=== PATIENT | female | born 1965 | race Caucasian/White ===

== ENCOUNTER 2023-05-07 14:20 | Outpatient (REF) | payer MEDICAID, SELFPAY ==
[2023-05-07 14:48] LABS: MANUAL DIFF FLAG NO
[2023-05-07 15:01] LABS: Basophils Percent Auto 0.4 % (0-2); Eosinophils Absolute Auto 0.1 X10*3/uL (0.0-0.4); Eosinophils Percent Auto 0.9 % (0-4); Hemoglobin 12.3 g/dl (12.0-16.0); Imm Gran Abs Auto 0.01 X10*3/uL (0.00-0.03); Imm Gran Pct Auto 0.1 % (0.0-0.4); Lymphocytes Absolute Auto 3.4 X10*3/uL (1.2-4.9); Lymphocytes Percent Auto 41.4 % (20-40); Mean Corpuscular HGB Conc 33.2 g/dl (31.0-35.0); Mean Corpuscular Hemoglobin 29.1 pg (27.0-33.0); Mean Corpuscular Volume 87.5 fL (80.0-98.0); Mean Platelet Volume 9.8 fL (9.4-12.3); Monocytes Absolute Auto 0.6 X10*3/uL (0.1-1.2); Monocytes Percent Auto 7.8 % (2-11); Neutrophils Percent Auto 49.4 % (45-73); Platelet Count 276 X10*3/uL (160-400); Red Blood Count 4.23 X10*6/uL (4.20-5.50); Red Cell Distribution Width 13.4 % (11.0-16.0); White Blood Count 8.1 X10*3/uL (4.8-10.8)
[2023-05-07 15:12] LABS: Estimated Average Glucose 103 mg/dL; Hemoglobin A1c % 5.2 % (<6.0)
[2023-05-07 15:35] LABS: Alanine Aminotransferase 56 U/L (0-31); Albumin Level 4.4 g/dL (3.5-5.0); Alkaline Phosphatase 159 U/L (39-117); Anion Gap 16 (12-20); Aspartate Amino Transferase 44 U/L (5-31); Bilirubin Total 0.2 mg/dL (0.0-1.0); Blood Urea Nitrogen 19 mg/dL (9-16); Calcium 10.2 mg/dL (8.4-10.2); Carbon Dioxide 26 mmol/L (22-29); Chloride 104 mmol/L (96-108); Estimated Glomerular Filt Rate 59; Glucose Random 95 mg/dL (60-115); Potassium 3.9 mmol/L (3.3-5.1); Sodium 142 mmol/L (135-145); Total Protein 7.3 g/dL (6.5-8.0)
[2023-05-07 15:51] LABS: Thyroid Stimulating Hormone 2.05 uIU/mL (0.32-4.0)
[2023-05-15 22:23] LABS: Islet Cell Antibody Screen NEGATIVE (NEGATIVE)
== END 2023-05-07 14:21 | disposition home or self-care (01) ==
LOC: HO.LAB 14:20
PROVIDERS: Visit Provider Registered Nurse
DX: G25.82 Stiff-man syndrome (principal)
CPT/HCPCS: 36415; 80053; 83036; 84443; 85025; 86341

== ENCOUNTER 2024-03-11 14:40 | Outpatient (REF) | payer MEDICAID, SELFPAY | END 2024-03-11 14:41 | disposition home or self-care (01) | LOC: HO.LAB 14:40 | PROVIDERS: PCP Nurse Practitioner; Visit Provider Registered Nurse | DX: G25.82 Stiff-man syndrome (principal) | CPT/HCPCS: 83520 ==

== ENCOUNTER 2024-09-16 11:13 | Emergency (ER) | payer MEDICAID, SELFPAY ==
[2024-09-16 11:23] VITALS: BP 117/78; PULSE 84; O2SAT 97
[2024-09-16 11:25] VITALS: BP 138/80; PULSE 86; RESP 17; TEMP 36.5; O2SAT 96; BMI 31.0
[2024-09-16 11:38] VITALS: BP 138/80; PULSE 86; RESP 17; TEMP 36.5; O2SAT 96
--- OUTSIDE RECORDS SUMMARY | 2024-09-16 12:51 | XMS_ITS | Clinical Summary ---
Author Organization [facility] Address [address] [place] [address] Care Team Providers Care Physician Underwriter Name Role Phone Unknown Primary Care Provider Allergies Active Allergy Reactions Criticality Noted Date Comments Penicillins Unknown/Patient and Family Unable to Define Medium 09/15/2024 Sulfa Antibiotics Unknown/Patient and Family Unable to Define Medium 09/15/2024 Medications clindamycin (CLEOCIN) 300 MG capsule Take 1 capsule (300 mg total) by mouth every 6 (six) hours. Take as directed or until you run out 40 capsule 09/15/2024 09/26/19 25 Active ibuprofen (MOTRIN) 600 MG tablet Take 1 tablet (600 mg total) by mouth 3 (three) times a day as needed for mild pain (pain). 30 tablet 09/15/2024 Active Encounters Date Type Department Care Team Description 09/15/2024 6:40 PM EDT - 09/15/2024 11:46 PM EDT Emergency [facility] Emergency Department [address] [place] [address] Surendra Colindres MD Dental abscess (Primary Dx) Discharge Disposition: Home or Self Care 09/15/2024 1:20 PM EDT Ancillary Procedure [facility] [address] [place] [address] Provider, File Room Arrived 09/15/2024 Documentation [facility] DENT[facility] [address] [place] [phone] Anni De La Torre DMD 09/15/2024 Travel 09/15/2024 Orders Only [facility] [address] [place] [address] Provider, File Room from Last 3 Months Social History Tobacco Use Types Packs/Day Years Used Date Smoking Tobacco: Never Assessed Comments Unknown Sex and Gender Information Value Date Recorded Sex Assigned at Female 09/15/2024 6:44 PM EDT Legal Sex Female 3:20 PM EDT Gender Identity Female 09/15/2024 6:44 PM EDT Sexual Orientation Heterosexual (straight) 09/15 6:46 PM EDT Last Filed Vital Signs Vital Sign Reading Time Taken Comments Blood Pressure 158/84 09/15/2024 6:32 PM EDT Pulse 94 09/15/2024 6:32 PM EDT Temperature 36.1 C (97 F) 09/15/2024 6:32 PM EDT Respiratory Rate 16 09/15/2024 6:32 PM EDT Oxygen Saturation 98% 09/15/2024 6:32 PM EDT Inhaled Oxygen Concentration - - Weight - - Height - - Body Mass Index - - Plan of Treatment Health Maintenance Due Date Last Done Comments Hepatitis C Virus Screening 1967 HIV Screening 1980 DTaP/Tdap/Td Vaccines (1 - Tdap) 1986 Hepatitis B Vaccines (1 of 3 - 19+ 3-dose series) 1986 Pap Smear (Ages 21-65) 1988 Mammogram 2007 Colonoscopy 2012 Pneumococcal Vaccines 50+ (1 of 1 - PCV) 2017 Zoster (Shingles) Vaccine (1 of 2) 2017 COVID-19 Vaccine ( - season) 2023 08/22/2021, 03/14/2021, 10/04/2020 Influenza Vaccine 09/17/2024 Procedures Procedure Name Priority Date/Time Associated Diagnosis Comments XR PANOREX STAT 09/15/2024 8:[address] HEAD ARCHIVE FOR REFERENCE ONLY Routine 09/15/2024 1:17 PM EDT from Last 3 Months Results * XR Panorex (09/15/2024 8:06 PM EDT) Anatomical Region Laterality Modality Face Computed Radiogr aphy 09/15/2024 7:30 PM EDT Impressions 09/15/2024 10:06 PM EDT No periapical lucency to suggest an odontogenic abscess. Interpreted by: Darlene Smith DO Corrections Sergeant I personally reviewed the images and the resident's preliminary report and AGREE with the report as it is now presented ([email or web address]). Narrative 09/15/2024 10:06 PM EDT EXAMINATION: Panorex radiograph of the maxillofacial bones. CLINICAL INFORMATION: Dental abscess to right incisor COMPARISON: None. TECHNIQUE: Panorex radiograph of the maxilla and mandible was obtained. FINDINGS: No evidence of mandibular or maxillary fracture. The mandibular condyles appear well-seated within their respective temporal articular grooves. Multiple missing teeth. No abnormal periapical lucencies to suggest odontogenic abscesses. No abnormal opacification of the visualized paranasal sinuses. Procedure Note Addy Montiel MD - 09/15/2024 EXAMINATION: Panorex radiograph of the maxillofacial bones. CLINICAL INFORMATION: Dental abscess to right incisor COMPARISON: None. TECHNIQUE: Panorex radiograph of the maxilla and mandible was obtained. FINDINGS: No evidence of mandibular or maxillary fracture. The mandibular condyles appear well-seated within their respective temporal articular grooves. Multiple missing teeth. No abnormal periapical lucencies to suggest odontogenic abscesses. No abnormal opacification of the visualized paranasal sinuses. IMPRESSION: No periapical lucency to suggest an odontogenic abscess. Interpreted by: Darlene Smith DO Corrections Sergeant I personally reviewed the images and the resident's preliminary report and AGREE with the report as it is now presented ([email or web address]). Brijesh Crawford PA-C [facility]NO[facility]AG[facility] ORDERABLES Final Result * CT Head Archive for Reference Only (09/15/2024 1:17 PM EDT) Narrative KARIME - 09/15/2024 1:17 PM EDT This study has been auto finalized and does not contain a result. us File Room Provider [facility]G DIGITIZE FILMS Final Resu lt KARIME [phone] from Last 3 Months Insurance [facility] Care Teams Physician Underwriter Relationship Specialty Start Date End Date Unknown Unknow Provider Address PCP - General 09/15/24
--- OUTSIDE RECORDS SUMMARY | 2024-09-16 12:51 | XMS_ITS | Clinical Summary ---
Author Organization [facility] Address [address] [place] [id number] Care Team Providers Care Supervisor Grinding Name Role Phone Unavailable Primary Care Provider Unavailabl e Social History Tobacco Use Types Packs/Day Years Used Date Smoking Tobacco: Never Assessed Comments Unknown Sex and Gender Information Value Date Recorded Sex Assigned at Not on file Legal Sex Female 9:42 AM EDT Gender Identity Not on file Sexual Orientation Not on file Plan of Treatment Health Maintenance Due Date Last Done Comments Breast Cancer Screening 1967 Hepatitis B Vaccine (1 of 3 - 19+ 3-dose series) 03/11 Colorectal Cancer Screening: Annual FOBT 2016 Colorectal Cancer Screening: Colonoscopy 2016 Colorectal Cancer Screening: Sigmoidoscopy 2016 Pneumococcal Vaccine: 50+ Years (1 of 1 - PCV) 018 Influenza Vaccine (#1) 2024 Insurance Medicaid [place]
--- OUTSIDE RECORDS SUMMARY | 2024-09-16 12:51 | XMS_ITS | Patient Health Record ---
Author Organization [facility] Address [address], [place] [id number] Care Team Providers Care Bone Char Operator Name Role Phone Guadalupe Danielle Primary Care Provider [phone] Sandeep Bhat Unavailable [phone] Nancy Greco Unavailable [phone] Allergies Allergen (clinical drug ingredient) Drug/Non Drug Allergy documented on EMR Reaction Allergy Type Onset Date Status Sulfa anaphylaxis Drug Allergy Activ e erythromycin Unknown Drug Allergy Acti ve Results Component Value Reference Range Notes MICROALBUMIN CREATININE URIN E RATIO Reviewed date:01/22/2024 03:59:28 PM Interpretation:Normal Performing Lab: Notes/Report: Creatinine, Urine 190.0 Microalb, Ur 8.6 0.0-29.0 mg/L Microalb/Creat Ratio 5 <30 mg/g creat COMPREHENSIVE METABOLIC PANE L Reviewed date:01/22/2024 03:59:10 PM Interpretation:Abnormal Performing Lab: Notes/Report: Sodium 144 133-145 mmol/L Potassium 3.8 3.5-5.5 mmol/L Chloride 108 96-110 mmol/L CO2 29 21-32 mmol/L Anion Gap 7 3-11 Glucose 128 70-100 mg/dL BUN 15 5-25 mg/dL Creatinine 1.11 0.50-1.10 mg/dL eGFR 58 >=60 mL/min/1.73m2 Calculati on based on the?Chronic Kidney Disease Epidemiology Collaboration (CKD-EPI) equation refit?without adjustment for race. BUN/Creatinine Ratio 13.5 Calcium 9.5 8.5-10.5 mg/dL AST (SGOT) 47 10-42 unit/L ALT (SGPT) 59 10-60 unit/L Alkaline Phosphatase 184 42-121 unit/L Total Protein 7.0 6.0-8.0 g/dL Albumin 4.0 3.2-5.0 g/dL Total Bilirubin 0.3 0.0-1.4 mg/dL COMPLETE BLOOD COUNT Reviewed date:01/22/2024 03:59:18 PM Interpretation:Normal Performing Lab: Notes/Report: WBC 6.5 4.8-10.8 K/mcL RBC 4.00 3.80-4.80 M/mcL Hemoglobin 11.9 11.5-16.0 g/dL Hematocrit 36.9 35.0-47.0 % MCV 92.5 79.0-98.0 FL MCH 29.8 27.0-32.0 pcg MCHC 32.2 32.0-37.0 g/dL RDW 13.8 11.0-15.0 % Platelets 243 130-400 K/mcL MPV 10.0 7.0-11.0 FL NRBC 0.0 <1.0 % NRBC Absolute 0.00 <0.10 K/mcL LIPID PANEL WITH REFLEX TO D IRECT LDL Reviewed date:01/23/2024 11:20:43 AM Interpretation:Abnormal Performing Lab: Notes/Report: Cholesterol 222 0-200 mg/dL Triglycerides 296 0-150 mg/dL HDL 54 >=40 mg/dL LDL Calculated 109 0-100 mg/dL VLDL Cholesterol Alexey 59.2 Non HDL Chol. (LDL+VLDL) 168 <145 mg/dL Chol/HDL Ratio 4.1 0.0-4.4 THYROID STIMULATING HORMONE WITH REFLEX TO FREE T4 AND FREE T3 Reviewed date:01/22/2024 03:58:43 PM Interpretation:Normal Performing Lab: Notes/Report: TSH 2.63 0.40-4.00 mcIU/mL HEMOGLOBIN A1C Reviewed date:01/22/2024 03:58:36 PM Interpretation:Normal Performing Lab: Notes/Report: Hemoglobin A1C 4.8 <6.5 % Mean Bld Glu Estim. 91 Reason For Referral Reason To [address] x12 months, x5 monthly Referral Organization [facility] Referring Provider First Name Guadalupe Referring Provider Last Name Lolis Referring Provider Speciality Nurse Prac titioner Referred Provider PT1, Request Referral Priority Routine Reason [facility] are, [address] [facility] P: [phone] F: [phone] Needs a DETECTIVE [employer]CINCT to assist with laundry, grocery shopping, and cleaning for at least 2 hours a day 2-3x/week Diagnosis 1 Pain in unspecified knee (M25.569) Referral Organization [facility] Referring Provider First Name Guadalupe Referring Provider Last Name Lolis Referring Provider Speciality Nurse Prac titioner [facility] Specialty Other Medica l Care General Notes Naima Jaquez 01/2024 10:05:46 AM > Faxed to [facility] Referral Priority Routine Reason [facility], [address], [facility] [address] P: [phone] F: [phone] treat for knee pain Diagnosis 1 Pain in unspecified knee (M25.569) Referral Organization [facility] Referring Provider First Name Guadalupe Referring Provider Last Name Lolis Referring Provider Speciality Nurse Prac bashir Referred Provider [facility] Referred Provider Specialty Orthopedic S urgery General Notes pls attach related E D visit notes/imaging, Naima Jaquez 01/30/2024 01:51:15 PM > Faxed to PACO'sLuis Ligia 02/17/2024 09:43:57 AM > appt requested, Dania Ragsdale 03/17/2024 09:02:19 AM >requested appt info, Yu Sousa 05/03/2024 03:30:02 PM > fax sent to check status of apptLuis Ligia 08/26/2024 01:47:38 PM > appt requestedLuis Ligia 08/30/2024 02:16:46 PM > Refaxed Referral Priority Routine Reason PT [address] [facility] in [address] [place] [address] Florence watson 12 months for 3x visits monthly Referral Organization [facility] Referring Provider First Name Guadalupe Referring Provider Last Name Lolis Referring Provider Speciality Nurse Prac bashir Referred Provider PT, -1 Referral Priority Routine Medications Medication SIG (Take, Route, Frequency, Duration) Notes Start Date End Date Status amlodipine-benazepril 5 mg-20 mg 1 cap(s) orally once a day Unknown traMADol 50 mg 1 tab(s) orally every 8 hours as needed 10/08/2022 Unknown clonazePAM 0.5 mg 1 tab(s) orally 2 times a day prescribed by Neuro Unknown methadone 10 mg/mL 95 mg am, 85mg pm orally twice a day Unknown diclofenac topical 1% as directed applied topically 4 times a day as needed for pain for 30 days Unknown hydrOXYzine hydrochloride 25 mg 1 tab orally 3 times a day as needed for anxiety and insomnia for 30 days Unknown hydrOXYzine hydrochloride 25 mg 1 tab orally 4 times a day as needed for anxiety Unknown DULoxetine 30 mg 1 cap in am and 2 caps in pm orally 2 times a day for 30 days Unknown baclofen 20 mg 2 tabs orally 3 times a day as needed prescribed by neuro Unknown Ventolin HFA 90 mcg/inh 2 puff(s) inhaled every 6 hours as needed for shortness of breath for 30 days Unknown Lyrica 150 mg 1 cap(s) orally 2 times a day prescribed by Neuro Unknown doxycycline hyclate 100 mg 1 cap(s) orally 2 times a day for 7 days 08/26/2024 Active pantoprazole 40 mg 1 tab(s) orally once a day for 90 days Unknown predniSONE 20 mg 2 tab orally once a day for 5 days 08/26/2024 Active rosuvastatin 5 mg 1 tab(s) orally once a day for 90 days Unknown Immunizations Vaccine Route Administration Date Status Comme nts Moderna Covid-19 Vaccine Administration - First Dose (Single Dose 100MCG/0.5ML 1ST) IM Intramuscular 10/04/2020 Administered Moderna Covid-19 Vaccine Administration - Second Dose (Single Dose 100 MCG/0.5ML 2ND) IM Intramuscular 03/14/2021 Administered Moderna Covid-19 Booster Administration - Third Dose (Single Dose 50 mcg/0.25 mL IM Intramuscular 08/22/2021 Administered Social History Tobacco Use: Social History Observation Description Date Details (start date - stop date) Never Smoker NA - NA Sex Assigned At : Social History Observation Description Sex Assigned At Female Tobacco Use Assessment MU Question Answer Notes What is your current smoking status? nonsmoker reports 3 cigarettes/month Problems Problem Type SNOMED Code ICD Code Onset Dates Problem Status W/U Status Risk Notes Problem Obesity due to excess calories (379950181) Other obesity due to excess calories (E66.09) Inactive confirmed Problem Obesity (898528014) Obesity, unspecified (E66.9) Active confirmed Problem Mixed hyperlipidemia (298982635) Mixed hyperlipidemia (E78.2) Active confirmed Problem Tobacco user (792027339) Nicotine dependence, cigarettes, uncomplicated (F17.210) Active confirmed Problem Moderate recurrent major depression (87917542) Major depressive disorder, recurrent, moderate (F33.1) Active confirmed Problem Anxiety disorder (516345750) Anxiety disorder, unspecified (F41.9) Active confirmed Problem Posttraumatic stress disorder (33538892) Post-traumatic stress disorder, chronic (F43.12) Active confirmed Problem 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 Monterroso- Neurologist phone number and Dr. Efrain Phillips Problem Insomnia (821658876) Insomnia, unspecified (G47.00) Active confirmed Problem Essential hypertension (48448370) Essential (primary) hypertension (I10) Active confirmed Problem Sequelae of cerebral infarction (823390584) Unspecified sequelae of cerebral infarction (I69.30) Active confirmed Problem Gastro-esophagea l reflux disease without esophagitis (738780212) Gastro-esophagea l reflux disease without esophagitis (K21.9) Active confirmed Problem Hysterectomy (894623738) Acquired absence of both cervix and uterus (Z90.710) Active confirmed Problem Nondependent opioid abuse in remission (088369756) Opioid abuse, in remission (F11.11) Active confirmed Problem Body mass index 30.00 to 34.99 (320322632408181 ) Body mass index [BMI] 32.0-32.9, adult (Z68.32) Active confirmed Problem Body mass index 35.00 to 39.99 (494793242327271 ) Body mass index [BMI] 37.0-37.9, adult (Z68.37) Active confirmed Problem Sheltered homelessness (006537575757513 ) Sheltered homelessness (Z59.01) Active confirmed Vital Signs Temperature 98.5 degrees Fahrenheit 01/20/2024 Blood pressure diastolic 77 01/20/2024 Oximetry 98 01/20/2024 Height 58.5 in 2024 Blood pressure systolic 138 01/20/2024 Encounters Encounter Location Date Provider Diagnosis [address] [id number] 01/20/2024 Guadalupe Danielle Encounter for screening for COVID-19 Z11.52 ; Encounter for general adult medical examination with abnormal findings Z00.01 ; Opioid abuse, in remission F11.11 ; Stiff-man syndrome G25.82 ; Mixed hyperlipidemia E78.2 ; Essential (primary) hypertension I10 ; Obesity, unspecified E66.9 ; Sheltered homelessness Z59.01 and Nicotine dependence, cigarettes, uncomplicated F17.[address] [id number] 01/20/2024 Sandeep Bhat Major depressive disorder, recurrent, moderate F33.1 ; Anxiety disorder, unspecified F41.9 ; Post-traumatic stress disorder, chronic F43.12 ; Stiff-man syndrome G25.82 ; Insomnia, unspecified G47.00 and Encounter for screening for COVID-[address] [id number] 01/28/2024 Guadalupe Danielle Persons encountering health services in other specified circumstances Z76.89 ; Pain in unspecified knee M25.569 and Person consulting for explanation of examination or test findings Z71.[address] [place] [id number] 02/19/2024 Nancy Greco Encounter for screening for COVID-19 Z11.52 and Major depressive disorder, recurrent, moderate F33.[address] [id number] 2024 Nancy Greco Encounter for screening for COVID-19 Z11.52 and Major depressive disorder, recurrent, moderate F33.1 [facility] [place] [id number] 03/25/2024 Sandeep Bhat Major depressive disorder, recurrent, moderate F33.1 ; Anxiety disorder, unspecified F41.9 ; Post-traumatic stress disorder, chronic F43.12 ; Stiff-man syndrome G25.82 and Insomnia, unspecified G47.[address] [id number] 04/08/2024 Nancy Greco Encounter for screening for COVID-19 Z11.52 and Major depressive disorder, recurrent, moderate F33.1 [facility] [address] [place] [address] FOR [facility]OM[facility] [id number] 04/28/2024 Nancy Greco Encounter for screening for COVID-19 Z11.52 and Major depressive disorder, recurrent, moderate F33.1 [facility] [place] [id number] 05/21/2024 Sandeep Bhat Major depressive disorder, recurrent, moderate F33.1 ; Anxiety disorder, unspecified F41.9 ; Post-traumatic stress disorder, chronic F43.12 ; Stiff-man syndrome G25.82 ; Insomnia, unspecified G47.00 and Opioid abuse, in remission F11.11 [facility] [place], [place] [id number] 08/26/2024 Sandeep Bhat Anxiety disorder, unspecified F41.9 ; Major depressive disorder, recurrent, moderate F33.1 ; Post-traumatic stress disorder, chronic F43.12 ; Stiff-man syndrome G25.82 ; Insomnia, unspecified G47.00 ; Opioid abuse, in remission F11.11 and Wheezing R06.2 [facility] [address] [place] [id number] 01/16/2024 Edd[address]iza Casionan [address] [id number] 01/20/2024 Eddieliza Casionan [address] [id number] 01/20/2024 Eddieliza Casionan [address] [id number] 01/28/2024 Eddieliza Casionan Pain in unspecified knee M25.[address] [id number] 01/28/2024 Eddieliza Casionan [address] [id number] 02/13/2024 Eddieliza Casionan [address] [id number] 03/17/2024 Eddieliza Casionan [address] [id number] 03/25/2024 Sandeep Bhat [facility] [address] [place], [place] [id number] 05/21/2024 Sandeep Bhat [address] [id number] 05/26/2024 Eddieliza Lolis [address] [id number] 08/23/2024 Eddieliza Casionan [address] [id number] 08/26/2024 Eddieliza Elijahionan Assessments Encounter Date Diagnosis (ICD Code) Assessment Notes Treatment Notes Treatment Clinical Notes Section Notes 01/20/2024 Encounter for general adult medical examination with abnormal findings (ICD-10 - Z00.01) Annual PE performed.General recommendation for good health made: brush/floss your teeth 2x per day. Eat a healthy diet and obtain 30 minutes of aerobic exercise 5/7 days per week.. Maintain high in take of water and avoid soda and energy drinks. Get 8 hours of sleep every night. 01/20/2024 Encounter for screening for COVID-19 (ICD-10 - Z11.52) Covid screening is negative. Discussed in detail with patient how to practice social distancing by avoiding public spaces and crowds now, wearing a mask in public to keep nose and mouth covered, and washing hands frequently especially before eating and after using the bathroom. Return to clinic if you develop any symtpoms of concern to be rescreened or go to the emergency room if you are having concerning symptoms for COVID-19. 01/20/2024 Major depressive disorder, recurrent, moderate (ICD-10 - F33.1) Reviewed hx of psychiatric illness, treatment received and medication trials with client. Discussed current medications as to indications, actions and side effects. Reviewed risks benefits of treatment versus non treatment. Medication education provided. Patient given opportunity to ask questions. Patient gives informed consent to proceed with prescribed treatment. 1. [employer] reviewed: see exam 2. Medications: cont duloxetine at present dose 3. Cont psychotherapy: has appt with April Greco 02/19/24. 4. Labs/Procedures: no new labs for review. Labs drodered by PCP today.Has f/u to review. 5. Exercise/Nutritio n: sleep, regular exercise and nutrition all have a direct impact on our health and well-being. Keeping them in balance is especially important when we face stressful times in our lives. Eat balanced meals, get 6-8 hours of sleep a night, daily walking as able. 6. Understands plan and verbalizes agreement, allowed time for clarifying questions. 01/28/2024 Persons encountering health services in other specified circumstances (ICD-10 - Z76.89) Due to symptoms from Stiff-man's syndrome, she has difficulty attending to her personal physical needs including doing laundry and grocery shopping. She is asking for a DETECTIVE [employer]CINCT 02/19/2024 Major depressive disorder, recurrent, moderate (ICD-10 - F33.1) Discussed goals for her health and housing for the new . Clt is connected with new housing navigator and discussed confirming what housing lists she is on and to f/u with next steps for these applications. Clt aware of 03/25/24-11AM appt with ANGELI Wright, and f/u therapy appt scheduled with Germán Greco [facility], for telehealth per client's request. Asking for telehealth in winter months. Clt given HSH and crisis contact. Clt understands and agrees with plan. 02/19/2024 Encounter for screening for COVID-19 (ICD-10 - Z11.52) Covid verbal screening negative. Covid screening is negative. Discussed in detail with patient how to practice social distancing by avoiding public spaces and crowds now, wearing a mask in public to keep nose and mouth covered, and washing hands frequently especially before eating and after using the bathroom. Return to clinic if you develop any symtpoms of concern to be rescreened or go to the emergency room if you are having concerning symptoms for COVID-19. 2024 Encounter for screening for COVID-19 (ICD-10 - Z11.52) Covid verbal screening negative. Covid screening is negative. Discussed in detail with patient how to practice social distancing by avoiding public spaces and crowds now, wearing a mask in public to keep nose and mouth covered, and washing hands frequently especially before eating and after using the bathroom. Return to clinic if you develop any symtpoms of concern to be rescreened or go to the emergency room if you are having concerning symptoms for COVID-19. 03/25/2024 Major depressive disorder, recurrent, moderate (ICD-10 - F33.1) Reviewed hx of psychiatric illness, treatment received and medication trials with client. Discussed current medications as to indications, actions and side effects. Reviewed risks benefits of treatment versus non treatment. Medication education provided. Patient given opportunity to ask questions. Patient gives informed consent to proceed with prescribed treatment. 1. [employer] DRA[employer]SMAN reviewed: see exam 2. Medications: cont duloxetine at present dose 3. Cont psychotherapy: has f/u appt with April Greco [facility] 04/08/23. 4. Labs/Procedures: no new labs for review. 5. Exercise/Nutritio n: sleep, regular exercise and nutrition all have a direct impact on our health and well-being. Keeping them in balance is especially important when we face stressful times in our lives. Eat balanced meals, get 6-8 hours of sleep a night, daily walking as able. 6. Understands plan and verbalizes agreement, allowed time for clarifying questions. 03/25/2024 Anxiety disorder, unspecified (ICD-10 - F41.9) Has RF on hydroxyzine. No perfect cure for anxiety, however knowledge of process can often help and therapy and medicine combined is often the best approach. Anxiety while uncomfortable is not life threatening. 04/08/2024 Encounter for screening for COVID-19 (ICD-10 - Z11.52) Covid verbal screening negative. Covid screening is negative. Discussed in detail with patient how to practice social distancing by avoiding public spaces and crowds now, wearing a mask in public to keep nose and mouth covered, and washing hands frequently especially before eating and after using the bathroom. Return to clinic if you develop any symtpoms of concern to be rescreened or go to the emergency room if you are having concerning symptoms for COVID-19. 04/28/2024 Encounter for screening for COVID-19 (ICD-10 - Z11.52) Covid verbal screening negative. Covid screening is negative. Discussed in detail with patient how to practice social distancing by avoiding public spaces and crowds now, wearing a mask in public to keep nose and mouth covered, and washing hands frequently especially before eating and after using the bathroom. Return to clinic if you develop any symtpoms of concern to be rescreened or go to the emergency room if you are having concerning symptoms for COVID-19. 05/21/2024 Major depressive disorder, recurrent, moderate (ICD-10 - F33.1) Reviewed hx of psychiatric illness, treatment received and medication trials with client. Discussed current medications as to indications, actions and side effects. Reviewed risks benefits of treatment versus non treatment. Medication education provided. Patient given opportunity to ask questions. Patient gives informed consent to proceed with prescribed treatment. 1. [employer] DRA[employer]SMAN reviewed: see exam 2. Medications: cont duloxetine at present dose 3. Cont psychotherapy: has f/u appt with April Greco [facility] 4. Labs/Procedures: no new labs for review. 5. Exercise/Nutritio n: sleep, regular exercise and nutrition all have a direct impact on our health and well-being. Keeping them in balance is especially important when we face stressful times in our lives. Eat balanced meals, get 6-8 hours of sleep a night, daily walking as able. 6. Understands plan and verbalizes agreement, allowed time for clarifying questions. 05/21/2024 Anxiety disorder, unspecified (ICD-10 - F41.9) Has RF on hydroxyzine. No perfect cure for anxiety, however knowledge of process can often help and therapy and medicine combined is often the best approach. Anxiety while uncomfortable is not life threatening. 08/26/2024 Anxiety disorder, unspecified (ICD-10 - F41.9) No perfect cure for anxiety, however knowledge of process can often help and therapy and medicine combined is often the best approach. Anxiety while uncomfortable is not life threatening. Using hydroxyzine appropriately, not using daily. 01/28/2024 Pain in unspecified knee (ICD-10 - M25.569) 01/20/2024 Opioid abuse, in remission (ICD-10 - F11.11) remains on remission 01/20/2024 Anxiety disorder, unspecified (ICD-10 - F41.9) RF sent on hydroxyzine. No perfect cure for anxiety, however knowledge of process can often help and therapy and medicine combined is often the best approach. Anxiety while uncomfortable is not life threatening. 01/28/2024 Pain in unspecified knee (ICD-10 - M25.569) She needs to f/u with ortho. Sent message to our staff to help her call for a schedule 2024 Major depressive disorder, recurrent, moderate (ICD-10 - F33.1) Discussed goals for her health and housing for the new year. Clt is connected with new housing navigator and discussed confirming what housing lists she is on and to f/u with next steps for these applications. Clt aware of 03/25/24-11AM appt with ANGELI Wright, and f/u therapy appt scheduled with HEATHER Ferrell, 04/08/24 for telehealth per client's request. Asking for telehealth in winter months. Clt given HSH and crisis contact. Clt understands and agrees with plan. 03/25/2024 Post-traumatic stress disorder, chronic (ICD-10 - F43.12) Consideration for Trauma Therapy at [facility] in [facility]. when ready. Has f/u April ROMERO. 04/08/2024 Major depressive disorder, recurrent, moderate (ICD-10 - F33.1) Discussed goals for her health and housing for the new year. Clt is connected with new housing navigator and discussed confirming what housing lists she is on and to f/u with next steps for these applications. Clt aware of 05/20/24 appt with ANGELI Wright, and f/u therapy appt scheduled with HEATHER Ferrell, 04/28/24 for telehealth per client's request. Asking for telehealth in winter. Clt given HSH and crisis contact. Clt understands and agrees with plan. 04/28/2024 Major depressive disorder, recurrent, moderate (ICD-10 - F33.1) Discussed goals for her health and housing for the new year. Clt is connected with new housing navigator and discussed confirming what housing lists she is on and to f/u with next steps for these applications. Clt aware of 05/20/24 appt with ANGELI Wright, and f/u therapy appt scheduled with HEATHER Ferrell, 05/26/24 for telehealth per client's request. Asking for telehealth in winter months. Declining appt with PCP regarding increased pain and mobility issues. Encouraged client to call [facility] to be put on cancellation list. Clt given HSH and crisis contact. Clt understands and agrees with plan. 05/21/2024 Post-traumatic stress disorder, chronic (ICD-10 - F43.12) Consideration for Trauma Therapy at [facility] in [facility]. when ready. Has f/u April Greco [facility]. 08/26/2024 Major depressive disorder, recurrent, moderate (ICD-10 - F33.1) Reviewed hx of psychiatric illness, treatment received and medication trials with client. Discussed current medications as to indications, actions and side effects. Reviewed risks benefits of treatment versus non treatment. Medication education provided. Patient given opportunity to ask questions. Patient gives informed consent to proceed with prescribed treatment. 1. [employer]AN reviewed: see exam 2. Medications: cont duloxetine at present dose 3. Cont psychotherapy: has f/u appt with April ROMERO 4. Labs/Procedures: no new labs for review. 5. Exercise/Nutritio n: sleep, regular exercise and nutrition all have a direct impact on our health and well-being. Keeping them in balance is especially important when we face stressful times in our lives. Eat balanced meals, get 6-8 hours of sleep a night, daily walking as able. 6. Understands plan and verbalizes agreement, allowed time for clarifying questions. 08/26/2024 Post-traumatic stress disorder, chronic (ICD-10 - F43.12) Consideration for Trauma Therapy at [facility] in [facility]. when ready. Has f/u April Greco [facility]. 01/20/2024 Stiff-man syndrome (ICD-10 - G25.82) [phone] Dr. Monterroso- Neurologist phone number and Dr. Efrain Phillips Her symptoms are worse. She sees her neurologist every 2 months and her field sales executive will be next month 01/20/2024 Post-traumatic stress disorder, chronic (ICD-10 - F43.12) [facility] April Greco at [facility] will contact Nancy and will call for telehealth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
--- OUTSIDE RECORDS SUMMARY | 2024-09-16 12:51 | XMS_ITS | Clinical Summary ---
Author Organization [address] [facility] Address [address] [place] [address] Phone Care Team Providers Care Seasonal Clerk Name Role Phone Physician, Pcp Unknown Primary Care Provider Janene vailable Allergies Active Allergy Reactions Criticality Noted Date Comments Fish Containing Products 01/30/2024 Penicillins 01/13/2024 Shellfish Containing Products Unknown 06/25/2017 Reports hospitalization got into blood stream and was sick Shellfish Derived 07/18/2020 Sulfa (Sulfonamide Antibiotics) Anaphylaxis High 01/22/2018 Medications immun glob G,IgG,-pro-IgA 0-50 (Hizentra) 1 gram/5 mL (20 %) solution Inject 1 Syringe into the skin every 7 days. Active atorvastatin (LIPITOR) 80 mg tablet Take 80 mg by mouth daily. Active pregabalin (LYRICA) 75 mg capsule Take 75 mg by mouth 2 times daily. Active amLODIPine-ator vastatin (CADUET) 5-10 mg per tablet Take 1 tablet by mouth daily. Active aspirin 81 mg EC tablet Take 81 mg by mouth daily. Active Active Problems Problem Noted Date Diagnosed Date Acute medial meniscus tear of right knee 021 Overview (01/14/2024): Last Assessment & Plan: The patient has tried and failed conservative management of the right knee including observation, activity modification, attempts at maintaining exercise. She has had ibuprofen, oxycodone, steroid injection, joint aspiration and none of these have been effective for her. Pain remains. It has been getting progressively worse over time. Pain is significantly interfering with her ability to function on a day-to-day basis. As a result of the failure of conservative management and MRI evidence of a medial meniscus tear in the posterior horn region, I think that it is time to plan arthroscopic surgery to treat that. I reviewed with the patient the nature of the surgery and the risks and benefits pertaining to the surgery. After this discussion she felt that she would like to proceed with arthroscopic surgery rather than to continue the conservative management that has been inadequate for her. She has voiced informed consent for the surgery. We will get the patient scheduled for right knee arthroscopy, partial medial meniscectomy to be done whenever or time is available to us and convenient for her. She will follow-up with me 10-14 days postop. She may also follow-up at any time on a as needed basis for any reason. Right knee pain 07/21/2020 Trigger middle finger of right hand 07/19/2020 Trigger ring finger of right hand 07/19/2020 Arthritis 07/18/2020 Cerebral infarction ([facility] V24, [facility] V28) 0 07/18/2020 Fibromyalgia 07/18/2020 Herniated disc, cervical 07/18/2020 Hypertension 07/18/2020 Immunodeficiency ([facility] V24) 07/18/2020 Surgical History Surgery Date Site/Laterality Comments OTHER SURGICAL HISTORY N/A PROCEDURE: DC TOTAL ABDOMINAL HYSTERECT W/WO RMVL TUBE OVARY ROTATOR CUFF REPAIR N/A PROCEDURE: HISTORICAL ROTATOR CUFF REPAIR CARPAL TUNNEL RELEASE N/A PROCEDURE: DC NEUROPLASTY &/TRANSPOS MEDIAN NRV CARPAL TUNNE TONSILLECTOMY ADENOIDECTOMY, BILATERAL MYRINGOTOMY AND TUBES PROCEDURE: DC TONSILLECTOMY & ADENOIDECTOMY <AGE 14 Medical History Medical History Date Comments Malaria DX:Malaria; COMM ENT: immunodeficiency Cerebral infarction ([facility] V24, [facility] V28) DX:Cerebral infarction (HCC) Stroke ([facility] V24, [facility] V28) DX:Stroke (HCC) Lyme disease DX:Lyme disease Hyperlipidemia DX:Hyperlipidemi a Essential hypertension DX:Essent ial hypertension Lyme disease DX:Lyme disease Social History Tobacco Use Types Packs/Day Years Used Date Smoking Tobacco: Former Smokeless Tobacco: Never Alcohol Use Standard Drinks/Week Comments Yes 0 (1 standard drink = 0.6 oz pur e alcohol) Comments Unknown Sex and Gender Information Value Date Recorded Sex Assigned at Female 01/30/2024 7:46 PM EST Legal Sex Female 10:03 AM EST Gender Identity Female 01/30/2024 7:46 PM EST Sexual Orientation Straight 01/30/2024 7: 46 PM EST Obstetrics History Last Filed Vital Signs Vital Sign Reading Time Taken Comments Blood Pressure 132/89 01/30/2024 11:19 PM EST Pulse 86 01/30/2024 11:19 PM EST Temperature 36.7 C (98.1 F) 01/30/2024 11:19 PM EST Respiratory Rate 18 01/30/2024 11:19 PM EST Oxygen Saturation 99% 01/30/2024 11:19 PM EST Inhaled Oxygen Concentration - - Weight 68 kg (150 lb) 01/13/2024 5:47 PM EST Height 149.9 cm (4' 11 ) 01/13/2024 5:47 PM EST Body Mass Index 30.3 01/13/2024 5:47 PM EST Plan of Treatment Health Maintenance Due Date Last Done Comments Breast Cancer Screening 1967 Hepatitis A Vaccines (1 of 2 - Risk 2-dose series) 1986 Hepatitis B Vaccines (1 of 3 - 19+ 3-dose series) 1986 Pneumococcal Vaccine: 50+ Years (1 of 2 - PCV) 1986 Cervical Cancer Screening: Pap Smear 1988 Zoster Vaccines (1 of 2) 2017 Colorectal Cancer Screening: Colonoscopy 01/15/2022 HIV Screening 01/15/2022 Hepatitis C Screening 01/15/2022 Social Influencers of Health Screening 01/15/2022 COVID-19 Vaccine ( season) 2023 08/22/2021, 03/14/2021, 10/04/2020 Depression Screening 02/18/2024 Influenza Vaccine (#1) 2024 Hypertension/CHF/CAD Annual BMP Blood Test 01/29/2025 01/30/2024, 01/20/2024, 01/13/2024, Additional history exists Cholesterol Screening (Lipid Panel) 01/19/2029 01/20/2024, 11/24/2017 DTaP,Tdap,and Td Vaccines (3 - Td or Tdap) 11/08/2031 11/07/2021, 06/25/2017 HIB Vaccines Aged Out No longer eligi ble based on patient's age to complete this topic HPV Vaccines Aged Out No longer eligi ble based on patient's age to complete this topic IPV Vaccines Aged Out No longer eligi ble based on patient's age to complete this topic MMR Vaccines Aged Out No longer eligi ble based on patient's age to complete this topic Meningococcal ACWY Vaccine Aged Out N o longer eligible based on patient's age to complete this topic Meningococcal B Vaccine Aged Out No l onger eligible based on patient's age to complete this topic RSV Immunization Patients Under 20 months Aged Out No longer eligible based on patient's age to complete this topic Varicella Vaccines Aged Out No longer eligible based on patient's age to complete this topic Procedures Procedure Name Priority Date/Time Associated Diagnosis Comments COMPREHENSIVE METABOLIC PANEL STAT 01/30/2024 6:55 PM EST LIPID PANEL WITH REFLEX TO DIRECT LDL Routine 01/20/2024 11:53 AM EST Mixed hyperlipidemia Obesity, unspecified Essential (primary) hypertension from Last 3 Months or Most Recently Relevant to Health Maintenance Results * (ABNORMAL) Comprehensive Metabolic Panel (CMP) (01/30/2024 6:55 PM EST) Sodium 139 133 - 145 mmol/L LAB CHEMISTRY METHOD 01/30/2024 7:28 PM [facility] Potassium 4.4 3.5 - 5.5 mmol/L LAB CHEMISTRY METHOD 01/30/2024 7:28 PM [facility] Chloride 107 96 - 110 mmol/L LAB CHEMISTRY METHOD 01/30/2024 7:28 PM [facility] CO2 25 21 - 32 mmol/L LAB CHEMISTRY METHOD 01/30/2024 7:28 PM [facility] Anion Gap 7 3 - 11 LAB CHEMISTRY METHOD 01/30/2024 7:28 PM [facility] Glucose 85 70 - 100 mg/dL LAB CHEMISTRY METHOD 01/30/2024 7:28 PM [facility] BUN 29(H) 5 - 25 mg/dL LAB CHEMISTRY METHOD 01/30/2024 7:28 PM [facility] Creatinine 1.13(H) 0.50 - 1.10 mg/dL LAB CHEMISTRY METHOD 01/30/2024 7:28 PM [facility] eGFR 57(L) >=60 mL/min/1. 73m2 LAB CHEMISTRY METHOD 01/30/2024 7:28 PM [facility] Comment:Calculation based on the Chronic Kidney Disease Epidemiology Collaboration (CKD-EPI) equation refit without adjustment for race. BUN/Creatinine Ratio 25.7 LAB CHEMISTRY METHOD 01/30/2024 7:28 PM [facility] Calcium 9.7 8.5 - 10.5 mg/dL LAB CHEMISTRY METHOD 01/30/2024 7:28 PM [facility] AST (SGOT) 55(H) 10 - 42 unit/L LAB CHEMISTRY METHOD 01/30/2024 7:28 PM [facility] ALT (SGPT) 57 10 - 60 unit/L LAB CHEMISTRY METHOD 01/30/2024 7:28 PM [facility] Alkaline Phosphatase 149(H) 42 - 121 unit/L LAB CHEMISTRY METHOD 01/30/2024 7:28 PM [facility] Total Protein 7.1 6.0 - 8.0 g/dL LAB CHEMISTRY METHOD 01/30/2024 7:28 PM [facility] Albumin 4.2 3.2 - 5.0 g/dL LAB CHEMISTRY METHOD 01/30/2024 7:28 PM [facility] Total Bilirubin 0.4 0.0 - 1.4 mg/dL LAB CHEMISTRY METHOD 01/30/2024 7:28 PM [facility] Blood Venous blood specimen / Unknown Venipuncture / Unknown 01/30/2024 6:55 PM EST 01/30/2024 6:59 PM EST Mary MONTELONGO LAB BLOOD ORDERABLES F inal Result [facility] [address] [place] [address], * (ABNORMAL) Lipid panel with reflex to direct LDL (01/20/2024 11:53 AM EST) Cholesterol 222(H) 0 - 200 mg/dL LAB CHEMISTRY METHOD 01/20/2024 5:36 PM EST [facility] Triglycerides 296(H) 0 - 150 mg/dL LAB CHEMISTRY METHOD 01/20/2024 5:36 PM EST [facility] HDL 54 >=40 mg/dL LAB CHEMISTRY METHOD 01/20/2024 5:36 PM [facility] LDL Calculated 109(H) 0 - 100 mg/dL LAB CHEMISTRY METHOD 01/20/2024 5:36 PM EST [facility] VLDL Cholesterol Alexey 59.2 mg/dL LAB CHEMISTRY METHOD 01/20/2024 5:36 PM EST [facility] Non HDL Chol. (LDL+VLDL) 168(H) <145 mg/dL LAB CHEMISTRY METHOD 01/20/2024 5:36 PM EST [facility] Chol/HDL Ratio 4.1 0.0 - 4.4 LAB CHEMISTRY METHOD 01/20/2024 5:36 PM [facility] Blood Venous blood specimen / Unknown 01/20/2024 11:53 AM EST 01/20/2024 4:58 PM EST Guadalupe Danielle NP LAB BLOOD ORDERABLES Final Result [facility] [address] [place] [address], [place] [phone] from Last 3 Months or Most Recently Relevant to Health Maintenance Insurance MEDICAID - [place] Care Teams Seasonal Clerk Relationship Specialty Start Date End Date Physician, Pcp Unknown PCP - General 01/13/24
--- OUTSIDE RECORDS SUMMARY | 2024-09-16 12:51 | XMS_ITS ---
Author Name [facility] Organization Unknown Encounters Encounter Type Encounter Reason Primary Diagnosis Location Date Emergency Periapical abscess without sinus Periapical abscess without sinus [facility] 09/15/2024 Ambulatory [facility] 09/15/2024 Care Team Organization Name Specialty Phone Email Start Date End Da te [facility] 09/15/2024
--- OUTSIDE RECORDS SUMMARY | 2024-09-16 12:51 | XMS_ITS | Encounter Summary ---
Author Organization [facility] Address [address] [place] [id number] Phone Care Team Providers Care Salary And Wage Administrator Name Role Phone Pcp, Unknown Primary Care Provider Guadalupe Marrero [employer] Primary Care Provider [phone] Encounter Details Date Type Department Care Team (Late st Contact Info) Description 03/28/2023 Procedure Pass [facility], Ct Scan - [address] [address] Social History Tobacco Use Types Packs/Day Years Used Date Smoking Tobacco: Former Cigarettes 0.5 30 Alcohol Use Standard Drinks/Week Comments Not Currently 0 (1 standard drink = 0.6 oz pur e alcohol) prior social alcohol use Education Answer Date Recorded Are you interested in more education? Not on tony e 03/28/2023 Are you concerned about learning? Not on file 03/28/2023 No 03/28/2023 No 03/28/2023 Digital Access Answer Date Recorded No 03/28/2023 No 03/28/2023 Reliable internet access at home? Not on file 03/28/2023 Device with a working camera? Not on file Intimate Partner Violence Answer Date R ecorded Are you denied basic needs s uch as food, clothing, or medical care? Patient unable to respond 03/28/2023 In the past 12 months have y ou been in a relationship with a person who hurts, threatens, or tries to control you? Patient unable to respond 03/28/2023 Are you denied basic needs s uch as food, clothing, or medical care? Patient unable to respond 03/28/2023 In the past 12 months have y ou been in a relationship with a person who hurts, threatens, or tries to control you? Patient unable to respond 03/28/2023 Comments Unknown Sex and Gender Information Value Date Recorded Sex Assigned at Female 09/16/2024 2:34 AM EDT Legal Sex Female 8:39 AM EST Gender Identity Female 09/16/2024 2:34 AM EDT Sexual Orientation Don't know 09/16/2024 2: 34 AM EDT Occupation Industry Job Start Date Job End Date Disabled since her CVA, prev iously worked as a caterer Not on file Not on file Not on file documented as of this encounter Functional Status * Calculated C-SSRS Risk Score (Lifetime/Recent) Answer Date of Assessment Author No Risk Indicated 03/28/2023 8:06 PM Slim Rg RN * [place] Suicide Severity Rating Scale (Screener/Recent Self-Report) Question Answer Date of Assessment Author 1. Wish to be (Past 1 Month) No 024 8:06 PM Yary Rg RN 2. Non-Specific Active Suici josee Thoughts (Past 1 Month) No 03/28/2023 8:06 PM Yary Rg RN 6. Suicidal Behavior (Lifetime) No 8:06 PM Yary Rg RN documented as of this encounter Plan of Treatment Not on file documented as of this encounter Visit Diagnoses Not on filedocumented in this encounter Additional Health Concerns Infection Onset Date Last Indicated Resolved Time CoV-Risk 03/28/2023 03/28/2023 03/29/2023 9:15 AM EST documented as of this encounter Care Teams Salary And Wage Administrator Relationship Specialty Start Date End Date Pcp, Unknown PCP - General 03/28/23 03/28/23 Guadalupe Danielle NP [address] [place] [address] PCP - General 03/29/23 documented as of this encounter Additional Source Comments The information contained in this document represents components of the legal health record. It is not the complete legal health record.[facility]
--- NOTE | 2024-09-16 13:13 | ED.DENTAL ---
HPI - Dental/Oral General Chief complaint: Skin/Abscess/Foreign Body Stated complaint: MOUTH AND TOOTH PAIN Time Seen by Provider: 09/16/24 13:12 Source: patient and EMS Mode of arrival: EMS Limitations: no limitations History of Present Illness ED Provider: Duke Ramirez PA-C HPI Narrative: 59-year-old female presents to the ER for evaluation of mouth pain after she had a dental abscess drained at [facility] last night. she states they drained it and cauterized it because it was bleeding. She states they sent her antibiotics to her pharmacy but she has not been able to pick them up yet. She resides in a homeless penit[facility] in [place]. She reports pain at the abscess site and concern about bed bugs at her penitentiary. she denies any bites or rashes. she states she is worried the bugs are going to get in her mouth. She wants to get started on antibiotics. the dental clinic is supposed to call her tomorrow for follow-up appointment. Onset (ago): day(s) Duration: constant Severity: moderate Relieving factors: NSAIDs Exacerbating factors: chewing Context: other ( Abscess on roof of her mouth) Associated symptoms: other ( hard palate swelling) Treatment prior to arrival: none Related Data Home Medications ?Medication ?Instructions ?Recorded ?Confirmed albuterol sulfate 90 mcg/actuation 2 puff inhalation Q6H PRN dyspnea 08/26/24 aerosol inhaler (Ventolin HFA) amlodipine 5 mg-benazepril 20 mg 1 cap PO DAILY 08/26/24 capsule aspirin 81 mg tablet,delayed 81 mg PO DAILY 08/26/24 release baclofen 20 mg tablet 20 mg PO QID 08/26/24 clonazepam 0.5 mg tablet 0.5 mg PO BID 08/26/24 duloxetine 30 mg capsule,delayed mg PO 08/26/24 release hydroxyzine HCl 25 mg tablet 25 mg PO QID PRN anxiety 08/26/24 ibuprofen 200 mg tablet 200 mg PO TID PRN 08/26/24 methadone 10 mg tablet 90 mg PO QAM 08/26/24 naloxone 4 mg/actuation nasal spray intranasal 08/26/24 pantoprazole 40 mg tablet,delayed 40 mg PO DAILY 08/26/24 release pregabalin 150 mg capsule 150 mg PO BID 08/26/24 rosuvastatin 5 mg tablet 5 mg PO DAILY 08/26/24 tramadol 50 mg tablet 50 mg PO Q8H PRN 08/26/24 Allergies Allergy/AdvReac Type Severity Reaction Status Date / Time Penicillins (PCN) Allergy Unknown Unknown Verified 09/16/24 11:26 Sulfa (Sulfonamide Allergy Unknown Unknown Verified 09/16/24 11:26 Antibiotics) Review of Systems Review of Systems: Yes all other systems are reviewed and are negative [facility] Past Medical History Medical History (Updated 09/16/24 @ 14:42 by REGINALD Morrell) Chronic narcotic dependence ADD (attention deficit disorder) Lyme 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 Oriented X3. No acute distress. Head: normocephalic, atraumatic. Eyes: Pupils equal, round and reactive to light. ENT: Pharynx normal. No tonsillar swelling or exudate. the hard palate has an approximate 1 cm area of swelling and tenderness consistent with an abscess, centrally there is black and tissue consistent with previous cauterization and incision and drainage Neck: Normal inspection. Neck supple. CVS: Normal heart rate and rhythm. Pulses normal. Respiratory: No respiratory distress. Breath sounds normal. Abdomen: Soft and nontender. +BS x4 Skin: Skin warm and dry. Normal skin color. Normal skin turgor. No rashes. Extremities: No lower extremity edema. No joint swelling. Neuro/psych: Oriented X 3. poor historian. Paranoid thoughts. No focal deficits Vital Signs: Vital Signs: Last Vital Signs Temp 97.9 F 09/16/24 14:55 Pulse 84 09/16/24 14:55 Resp 17 09/16/24 14:55 BP 156/86 H 09/16/24 14:55 Pulse Ox 97 09/16/24 14:55 O2 Del Method Room Air 09/16/24 14:55 BMI result Body Mass Index 31.0 Medications Administered Discontinued Medications Generic Name Dose Route Start Last Admin Trade Name Freq PRN Reason Stop Dose Admin Clindamycin HCl 450 mg 09/16/24 13:40 09/16/24 14:07 Clindamycin Hcl 150 Mg Capsule PO 09/16/24 13:41 450 mg ONCE ONE Administration Ibuprofen 600 mg 09/16/24 13:40 09/16/24 14:07 Ibuprofen 600 Mg Tablet PO 09/16/24 13:41 600 mg ONCE ONE Administration Medical Decision Making Medical Decision Making MDM Narrative: 59-year-old female presenting to the ER for evaluation after she had an abscess on her hard palate drained at [facility] yesterday. She was unable to pickers material handlers her antibiotics, unclear why. She reports bed bugs outbreak at her homeless penitentiary. There is no evidence of bites on her skin. Her abscess is slightly tender with blackened area consistent with area of cauterization. No active purulent drainage. No swelling of her airway, lips or mouth. She is supposed to get a follow-up call with [place] dentist tomorrow. She is hemodynamically stable and does not need to emergently see a dentist today. She is awake, alert, oriented. She does seem fixated on big bugs but does not seem to have any adverse behaviors or dangerous behaviors about this. no SI, HI or hallucinations. Her [id number] is able to come and pick her up to bring her directly to the pharmacy so she can start her antibiotics. She has a penicillin allergy so a dose of clindamycin was given here. Discussed importance of outpatient follow-up with the dentist and she expressed understanding. Differential Diagnosis Differential Diagnoses: The differential diagnosis associated with the presentation includes dental abscess, malingering, anxiety, bed bugs, scabies External Record Review External record reviewed: Outside ED record Prescription Management I considered prescription management with: Pain Medication and Antibiotic Social Determinants Patient?s care significantly limited by Social Determinants of Health including: Inadequate housing, Problems related to primary support group and Other Social Determinant of Health Critical Care Time Critical Care Time Critical Care Time: No Discharge Plan Discharge Clinical Impression: Abscess of mouth Patient Disposition: Home, Self-Care Instructions: Dental Abscess (ED) Additional Instructions: it is important that you take the prescribed antibiotics as directed by [place] emergency department. The dentist there is recommending warm salt water rinses 2 times per day and sticking to a soft diet. They are recommending Tylenol and Motrin for pain. Less reactive than the other the dentist at [facility] is recommending follow-up at their dental clinic to make appointment to be seen for extraction. You were supposed to call the clinic to arrange this and number was provided to you Prescriptions: No Action methadone 10 mg tablet 90 mg PO QAM Rx Instructions: 6 tabs in PM clonazepam 0.5 mg tablet 0.5 mg PO BID aspirin 81 mg tablet,delayed release (DR/EC) 81 mg PO DAILY tramadol 50 mg tablet 50 mg PO Q8H PRN baclofen 20 mg tablet 20 mg PO QID amlodipine-benazepril 5-20 mg capsule 1 cap PO DAILY pantoprazole 40 mg tablet,delayed release (DR/EC) 40 mg PO DAILY ibuprofen 200 mg tablet 200 mg PO TID PRN hydroxyzine HCl 25 mg tablet 25 mg PO QID PRN (Reason: anxiety) albuterol sulfate [Ventolin HFA] 90 mcg/actuation HFA aerosol inhaler 2 puff inhalation Q6H PRN (Reason: dyspnea) rosuvastatin 5 mg tablet 5 mg PO DAILY duloxetine 30 mg capsule,delayed release(DR/EC) PO pregabalin 150 mg capsule 150 mg PO BID naloxone 4 mg/actuation spray,non-aerosol intranasal Discharge Date/Time: 09/16/24 15:10 Print Language: German
[2024-09-16 14:55] VITALS: BP 156/86; PULSE 84; RESP 17; TEMP 36.6; O2SAT 97
== END 2024-09-16 15:10 | disposition home or self-care (01) ==
PROVIDERS: Emergency Provider Emergency Medicine
DX: K12.2 Cellulitis and abscess of mouth (principal)
CPT/HCPCS: 99283; 99284